=== PATIENT | female | born 1970 | race American Indian/Alaskan Native ===

== ENCOUNTER 2017-02-22 20:27 | Emergency (ER) | payer OTHER ==
[2017-02-22 21:15] LABS: Basophils % (Auto) 0.4 % (0.0-1.8); Eosinophils % (Auto) 0.6 % (0.0-4.3); Hematocrit 41.8 % (30.3-42.9); Hemoglobin 13.6 gm/dl (10.1-14.3); Mean Corpuscular HGB Conc 33 % (30-34); Mean Corpuscular Hemoglobin 30 pg (28-32); Mean Corpuscular Volume 92 fl (79-97); Platelet Count 248 K/mm3 (140-440); Red Blood Count 4.56 M/mm3 (3.65-5.03); Red Cell Distribution Width 13.1 % (13.2-15.2); White Blood Count 7.2 K/mm3 (4.5-11.0)
[2017-02-22 21:19] LABS: INR 0.95 (0.87-1.13)
[2017-02-22 21:20] LABS: Partial Thromboplastin Time 25.5 Sec. (24.2-36.6)
[2017-02-22 21:28] LABS: Anion Gap 22 mmol/L; BUN/Creatinine Ratio 17; Blood Urea Nitrogen 10 mg/dL (7-17); Calcium 8.5 mg/dL (8.4-10.2); Carbon Dioxide 20 mmol/L (22-30); Chloride 99.3 mmol/L (98-107); Glucose 136 mg/dL (65-100); Potassium 3.1 mmol/L (3.6-5.0); Sodium 138 mmol/L (137-145)
[2017-02-22] MEDS ORDERED: NORMODYNE PO ONE (21:30)
--- NOTE | 2017-02-22 21:31 | Cat Scan Report ---
FINAL REPORT PROCEDURE: CT HEAD/BRAIN WO CON TECHNIQUE: Computerized tomography of the head was performed without contrast material. HISTORY: neuro deficits \T\lt; 6hrs or sx present upon awakening COMPARISON: No prior studies are available for comparison. FINDINGS: Artifacts from patient's earrings obscure the C1-2 level. The visualized portions of the paranasal sinuses are clear. Mastoid air cells are clear. There is no calvarial fracture. There is no hydrocephalus. No acute intracranial hemorrhage or mass effect is seen. There is no evidence of acute CVA. IMPRESSION: No abnormalities are seen.
[2017-02-22] MEDS ORDERED: ECOTRIN PO ONE (21:47)
[2017-02-22] MEDS ORDERED: ZESTRIL PO ONE (21:48)
[2017-02-22] MEDS ORDERED: NACL 0.45% 1000 ML 1,000 ML IV SCH (22:00)
[2017-02-22] MEDS ORDERED: K-DUR PO ONE (22:20)
[2017-02-22] MEDS ORDERED: NORMODYNE ONE (22:33)
[2017-02-23] MEDS ORDERED: NORMODYNE PO ONE (01:09)
--- NOTE | 2017-02-23 01:09 | Emergency Department Report ---
ED Neuro Deficit HPI - General Chief Complaint: Neuro Symptoms/Deficit Stated Complaint: NUBMNESS IN R HAND/FAINT Time Seen by Provider: 02/22/17 21:31 Source: patient Mode of arrival: Ambulatory Limitations: No Limitations - History of Present Illness Initial Comments: 46-year-old female presents to complaints of weakness in her right upper arm and right lower extremity. This happened 30 minutes prior to arrival. She is a known hypertensive, noncompliant with medications for many months. Patient has no facial asymmetry, no drift of her extremities, She has good power and tone in all her extremities. No headaches no nausea, no vomiting, no blurred vision -: Sudden, minutes(s) (30 minutes prior to arrival) Location: right arm (weakness), right leg (weakness) History of same: No Place: home Severity: mild Quality: weak Improves With: rest Worsens With: none On Anticoagulants: No Context: sudden onset Associated Symptoms: denies: confusion, chest pain, cough, diaphoresis, fever/ chills, headaches, loss of appetite, malise, nausea/vomiting, vertigo, seizures , shortness of breath, syncope, weakness - Related Data Home Medications: Home Medications Medication Instructions Recorded Confirmed Last Taken Metoprolol 25 mg PO BID 02/22/17 02/22/17 Unknown Previous Rx's Medication Instructions Recorded Last Taken Type Aspirin [Aspirin EC] 81 mg PO DAILY #30 tablet. 02/23/17 Unknown Rx Labetalol [Normodyne TAB] 200 mg PO BID #60 tablet 02/23/17 Unknown Rx Allergies/Adverse Reactions: Allergies Allergy/AdvReac Type Severity Reaction Status Date / Time No Known Allergies Allergy Verified 02/22/17 21:50 ED Review of Systems ROS: Stated complaint: NUBMNESS IN R HAND/FAINT Other details as noted in HPI Comment: All other systems reviewed and negative Constitutional: see HPI, weakness. denies: chills, diaphoresis, fever, malaise Eyes: denies: eye pain, eye discharge, vision change ENT: denies: ear pain, throat pain, dental pain, hearing loss Respiratory: denies: cough, orthopnea, shortness of breath, SOB with exertion Cardiovascular: denies: chest pain, palpitations, dyspnea on exertion, orthopnea , edema, syncope Endocrine: no symptoms reported Gastrointestinal: denies: nausea, vomiting, diarrhea, constipation, hematemesis Genitourinary: denies: dysuria, frequency, hematuria, discharge Musculoskeletal: denies: back pain, joint swelling, arthralgia Skin: denies: lesions, change in color, change in hair/nails, pruritus Neurological: as per HPI, weakness, other (sudden onset of right-sided weakness) ED Past Medical Hx - Past Medical History Hx Hypertension: Yes - Surgical History Past Surgical History?: Yes Additional Surgical History: Hysterectomy - Social History Smoking Status: Current Every Day Smoker Substance Use Type: None - Medications Home Medications: Home Medications Medication Instructions Recorded Confirmed Last Taken Type Metoprolol 25 mg PO BID 02/22/17 02/22/17 Unknown History Aspirin [Aspirin EC] 81 mg PO DAILY #30 tablet. 02/23/17 Unknown Rx Labetalol [Normodyne TAB] 200 mg PO BID #60 tablet 02/23/17 Unknown Rx ED Neuro Physical Exam - General Limitations: No Limitations General appearance: alert, anxious, in distress (mild to moderate distress) Suspected Stroke: No - Head Head exam: Present: atraumatic, normocephalic, normal inspection - Eye Eye exam: Present: normal appearance, PERRL, EOMI. Absent: scleral icterus, conjunctival injection, nystagmus - ENT ENT exam: Present: normal exam, normal orophraynx, mucous membranes moist - Neck Neck exam: Present: normal inspection, full ROM. Absent: tenderness, meningismus, lymphadenopathy - Respiratory Respiratory exam: Present: normal lung sounds bilaterally. Absent: respiratory distress, wheezes, rales, rhonchi, chest wall tenderness, accessory muscle use, decreased breath sounds, prolonged expiratory - Cardiovascular Cardiovascular Exam: Present: regular rate, normal rhythm, normal heart sounds - GI/Abdominal GI/Abdominal exam: Present: soft, normal bowel sounds. Absent: distended, tenderness, guarding, rebound, hyperactive bowel sounds, hypoactive bowel sounds , organomegaly, mass, pulsatile mass - Rectal Rectal exam: Present: deferred - Extremities Exam Extremities exam: Present: normal inspection, full ROM, normal capillary refill. Absent: tenderness, pedal edema - Neurological Exam Neurological exam: Present: alert, oriented X3, CN II-XII intact, motor sensory deficit, reflexes normal, other (power in all extremities is grade 5/5.No drift of her extremites, no facial palsy) - NIHSS Assessment Interval: Baseline 1a. Level of Consciousness: alert 1b. LOC Questions: answers correctly 1c. LOC Commands: performs tasks correctly 2. Best Gaze: normal 3. Visual: no visual loss 4. Facial Palsy: normal symmetrical movement 5b. Motor Arm Right: no drift 5a. Motor Arm Left: no drift 6a. Motor Leg Left: no drift 6b. Motor Leg Right: no drift 7. Limb Ataxia: absent 8. Sensory: normal 9. Best Language: no aphasia 10. Dysarthria: normal 11. Extinction/Inattention: no abnormality Total Score: 0 Stroke Severity: No Stroke Symptoms ED Course Vital Signs 02/22/17 02/22/17 02/22/17 20:37 21:35 21:37 Temperature 98.2 F 98.5 F Pulse Rate 111 H Respiratory 16 Rate Blood Pressure 173/104 158/102 Blood Pressure 173/104 [Left] O2 Sat by Pulse 100 97 Oximetry 02/22/17 02/22/17 02/22/17 21:45 22:00 22:15 Temperature Pulse Rate 87 80 82 Respiratory 17 21 20 Rate Blood Pressure 151/96 151/96 Blood Pressure [Left] O2 Sat by Pulse 100 100 99 Oximetry 02/22/17 22:30 Temperature Pulse Rate Respiratory 24 Rate Blood Pressure 157/96 Blood Pressure [Left] O2 Sat by Pulse 99 Oximetry - Lab Data Result diagrams: 02/22/17 20:53 02/22/17 20:53 Lab Results 02/22/17 02/22/17 02/22/17 Range/Units 20:53 20:53 20:53 WBC 7.2 (4.5-11.0) K/mm3 RBC 4.56 (3.65-5.03) M/mm3 Hgb 13.6 (10.1-14.3) gm/dl Hct 41.8 (30.3-42.9) % MCV 92 (79-97) fl MCH 30 (28-32) pg MCHC 33 (30-34) % RDW 13.1 L (13.2-15.2) % Plt Count 248 (140-440) K/mm3 Lymph % (Auto) 26.4 (13.4-35.0) % [place] % (Auto) 6.5 (0.0-7.3) % Eos % (Auto) 0.6 (0.0-4.3) % Baso % (Auto) 0.4 (0.0-1.8) % Lymph # 1.9 (1.2-5.4) K/mm3 [place] # 0.5 (0.0-0.8) K/mm3 Eos # 0.0 (0.0-0.4) K/mm3 Baso # 0.0 (0.0-0.1) K/mm3 Seg Neutrophils % 66.1 (40.0-70.0) % Seg Neutrophils # 4.8 (1.8-7.7) K/mm3 PT 13.2 (12.2-14.9) Sec. INR 0.95 (0.87-1.13) APTT 25.5 (24.2-36.6) Sec. Thrombin Time (15.1-19.6) Sec. Sodium (137-145) mmol/L Potassium (3.6-5.0) mmol/L Chloride (98-107) mmol/L Carbon Dioxide (22-30) mmol/L Anion Gap mmol/L BUN (7-17) mg/dL Creatinine (0.7-1.2) mg/dL Estimated GFR ml/min BUN/Creatinine Ratio % Glucose (65-100) mg/dL Calcium (8.4-10.2) mg/dL Troponin T (0.00-0.029) ng/mL HCG, Qual Negative (Negative) 02/22/17 02/22/17 Range/Units 20:53 20:53 WBC (4.5-11.0) K/mm3 RBC (3.65-5.03) M/mm3 Hgb (10.1-14.3) gm/dl Hct (30.3-42.9) % MCV (79-97) fl MCH (28-32) pg MCHC (30-34) % RDW (13.2-15.2) % Plt Count (140-440) K/mm3 Lymph % (Auto) (13.4-35.0) % [place] % (Auto) (0.0-7.3) % Eos % (Auto) (0.0-4.3) % Baso % (Auto) (0.0-1.8) % Lymph # (1.2-5.4) K/mm3 [place] # (0.0-0.8) K/mm3 Eos # (0.0-0.4) K/mm3 Baso # (0.0-0.1) K/mm3 Seg Neutrophils % (40.0-70.0) % Seg Neutrophils # (1.8-7.7) K/mm3 PT (12.2-14.9) Sec. INR (0.87-1.13) APTT (24.2-36.6) Sec. Thrombin Time 16.3 (15.1-19.6) Sec. Sodium 138 (137-145) mmol/L Potassium 3.1 L (3.6-5.0) mmol/L Chloride 99.3 (98-107) mmol/L Carbon Dioxide 20 L (22-30) mmol/L Anion Gap 22 mmol/L BUN 10 (7-17) mg/dL Creatinine 0.6 L (0.7-1.2) mg/dL Estimated GFR > 60 ml/min BUN/Creatinine Ratio 17 % Glucose 136 H (65-100) mg/dL Calcium 8.5 (8.4-10.2) mg/dL Troponin T < 0.010 (0.00-0.029) ng/mL HCG, Qual (Negative) 02/23/17 01:19 Normal sinus rhythm rate of 95 beats per minutes, normal axis, no ST elevations , normal intervals. - Radiology Data Radiology results: report reviewed, image reviewed Critical Care Time: No Critical care attestation.: If time is entered above; I have spent that time in minutes in the direct care of this critically ill patient, excluding procedure time. ED Disposition Clinical Impression: Transient ischemic attack (TIA), Uncontrolled hypertension Disposition: TO HOME OR SELFCARE Is pt being admited?: No Does the pt Need Aspirin: Yes Condition: Stable Instructions: Hypertension (ED), Transient Ischemic Attack (ED) Additional Instructions: Follow up with any PCP in your district for continued monitoring of your blood pressure, titration of blood pressure pressure medication and return back to the ER if your problems gets worse Prescriptions: Aspirin [Aspirin EC] 81 mg PO DAILY #30 tablet. Labetalol [Normodyne TAB] 200 mg PO BID #60 tablet Referrals: PRIMARY MD NEYMAR [Primary Care Provider] - 3-5 Days DIXIE MYERS MD [Staff Physician] - 3-5 Days (Cor his office for an appointment) Time of Disposition: 01:26
[2017-02-23] MEDS ORDERED: BABY ASPIRIN PO ONE (01:30)
[2017-02-23 01:50] VITALS: BP 151/97
== END 2017-02-23 01:47 | disposition home or self-care (01) ==
LOC: ED 20:27
DX: G45.9 Transient cerebral ischemic attack, unspecified (principal); I10 Essential (primary) hypertension; F17.210 Nicotine dependence, cigarettes, uncomplicated
CPT/HCPCS: 36415; 70450; 80048; 82962; 84484; 84703; 85025; 85610; 85670; 85730; 93005; 93010; 96360; 99285

== ENCOUNTER 2017-06-24 18:11 | Emergency (ER) | payer OTHER ==
[2017-06-24 19:30] VITALS: BP 159/90
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
== END 2017-06-25 14:00 | disposition left against medical advice (07) ==
LOC: ED 18:11
DX: M25.569 Pain in unspecified knee (principal); M79.89 Other specified soft tissue disorders; Z53.21 Procedure and treatment not carried out due to patient leaving prior to being seen by health care provider

== ENCOUNTER 2017-06-25 20:40 | Emergency (ER) | payer OTHER ==
[2017-06-25 21:58] VITALS: BP 152/103
== END 2017-06-26 03:00 | disposition left against medical advice (07) ==
LOC: ED 20:40
DX: M25.569 Pain in unspecified knee (principal); Z53.21 Procedure and treatment not carried out due to patient leaving prior to being seen by health care provider

== ENCOUNTER 2018-04-30 20:56 | Emergency (ER) | payer BC ==
[2018-04-30] MEDS ORDERED: CATAPRES ONE ×2 (21:49→23:39)
[2018-04-30] MEDS ORDERED: CATAPRES PO ONE (21:51)
[2018-04-30] MEDS ORDERED: CATAPRES PO STA (23:25)
--- NOTE | 2018-04-30 23:25 | Emergency Department Report ---
ED General Adult HPI - General Chief complaint: High BP Stated complaint: HIGH BLOOD PRESSUE Time Seen by Provider: 04/30/18 23:12 Source: patient Mode of arrival: Ambulatory Limitations: No Limitations - History of Present Illness Initial comments: 47-year-old Israeli female with history of hypertension presents complaining of elevated blood pressure. She is currently on metoprolol and is in the process of having her medications adjusted by her primary care provider if she can no longer take Norvasc. States she blood pressure has been has been elevated in the 160 region 100s, but today she felt a little lightheaded and headache nose of blood pressures in the 190s over the 110s. Skin to the emergency department. She reports no loss of speech, no loss of consciousness, no chest pain, shortness breath, palpitations, tinnitus, no numbness or tingling. Reports no unilateral weakness. No loss of vision. - Related Data Home Medications Medication Instructions Recorded Confirmed Last Taken Metoprolol 25 mg PO BID 02/22/17 02/22/17 Unknown Previous Rx's Medication Instructions Recorded Last Taken Type Aspirin [Aspirin EC] 81 mg PO DAILY #30 tablet. 02/23/17 Unknown Rx Labetalol [Normodyne TAB] 200 mg PO BID #60 tablet 02/23/17 Unknown Rx Allergies Allergy/AdvReac Type Severity Reaction Status Date / Time hydrochlorothiazide Allergy Swelling Verified 06/25/17 22:31 ED Review of Systems ROS: Stated complaint: HIGH BLOOD PRESSUE Other details as noted in HPI ED Past Medical Hx - Past Medical History Hx Hypertension: Yes Additional medical history: Overweight - Surgical History Additional Surgical History: Hysterectomy. Eye, 1989 - Social History Smoking Status: Never Smoker Substance Use Type: Alcohol - Medications Home Medications: Home Medications Medication Instructions Recorded Confirmed Last Taken Type Metoprolol 25 mg PO BID 02/22/17 02/22/17 Unknown History Aspirin [Aspirin EC] 81 mg PO DAILY #30 tablet. 02/23/17 Unknown Rx Labetalol [Normodyne TAB] 200 mg PO BID #60 tablet 02/23/17 Unknown Rx ED Physical Exam - General Limitations: No Limitations General appearance: alert, in no apparent distress - Head Head exam: Present: atraumatic, normocephalic - Eye Eye exam: Present: normal appearance, PERRL, EOMI, other (negative funduscopic examination.) - ENT ENT exam: Present: mucous membranes moist - Neck Neck exam: Present: normal inspection - Respiratory Respiratory exam: Present: normal lung sounds bilaterally. Absent: respiratory distress - Cardiovascular Cardiovascular Exam: Present: regular rate, normal rhythm. Absent: systolic murmur, diastolic murmur, rubs, gallop - GI/Abdominal GI/Abdominal exam: Present: soft, normal bowel sounds - Extremities Exam Extremities exam: Present: normal inspection - Back Exam Back exam: Present: normal inspection, full ROM. Absent: CVA tenderness (R), CVA tenderness (L) - Neurological Exam Neurological exam: Present: alert, oriented X3, CN II-XII intact, normal gait. Absent: abnormal gait, motor sensory deficit, reflexes normal - Psychiatric Psychiatric exam: Present: normal affect, normal mood. Absent: anxious, flat affect, manic, suicidal ideation - Skin Skin exam: Present: warm, dry, intact, normal color. Absent: rash, cyanosis, diaphoretic, erythema, urticaria ED Course Vital Signs 04/30/18 04/30/18 21:39 21:51 Temperature 98.5 F Pulse Rate 73 73 Respiratory 18 Rate Blood Pressure 194/108 194/108 O2 Sat by Pulse 100 Oximetry - Reevaluation(s) Reevaluation #1: 04/30/18 23:21 Reports an improvement in her symptomatology after the clonidine. Blood pressures improved to 170/100. He'll feel better. CT scan was offered as well as further evaluation. However, Ms. Vargas refused stating that she sees her primary care doctor Luciano morning. She thinks that time for further evaluation and medical management. She is alert and oriented 3 and of sound judgment. She does understand the risk including stroke, , chronic condition, worsening condition, pain Critical care attestation.: If time is entered above; I have spent that time in minutes in the direct care of this critically ill patient, excluding procedure time. ED Disposition Clinical Impression: Hypertension Disposition: DC-01 TO HOME OR SELFCARE Is pt being admited?: No Does the pt Need Aspirin: No Condition: Stable Instructions: Hypertension (ED) Additional Instructions: Return to the emergency departments to experience any dizziness, chest pain, weakness, speach changes, worsening condition, Referrals: [facility] [Provider Group] - 3-5 Days
[2018-05-01 00:35] VITALS: BP 153/100
== END 2018-04-30 23:43 | disposition home or self-care (01) ==
LOC: ED 20:56
DX: I10 Essential (primary) hypertension (principal); Z90.710 Acquired absence of both cervix and uterus

== ENCOUNTER 2018-05-13 01:55 | Inpatient (IN) | payer BC ==
--- NOTE | 2018-05-13 02:07 | Emergency Department Report ---
ED Neuro Deficit HPI - General Chief Complaint: Neuro Symptoms/Deficit Stated Complaint: WEAKNESS ON RIGHT SIDE DIZZINESS Time Seen by Provider: 05/13/18 02:06 Source: patient Mode of arrival: Wheelchair Limitations: No Limitations - History of Present Illness Initial Comments: Patient c/o sudden onset of right facial and right foot numbness which started at 1am tonight. Patient denies any trauma or injury. -: Sudden Location: right face, other (right foot) History of same: No Place: home Severity: mild Quality: numb, improving Improves With: none Worsens With: none On Anticoagulants: No Context: sudden onset Associated Symptoms: denies other symptoms Treatments Prior to Arrival: none - Related Data Home Medications: Home Medications Medication Instructions Recorded Confirmed Last Taken Metoprolol 25 mg PO BID 02/22/17 02/22/17 Unknown Previous Rx's Medication Instructions Recorded Last Taken Type Aspirin [Aspirin EC] 81 mg PO DAILY #30 tablet. 02/23/17 Unknown Rx Labetalol [Normodyne TAB] 200 mg PO BID #60 tablet 02/23/17 Unknown Rx Allergies/Adverse Reactions: Allergies Allergy/AdvReac Type Severity Reaction Status Date / Time hydrochlorothiazide Allergy Swelling Verified 06/25/17 22:31 ED Review of Systems ROS: Stated complaint: WEAKNESS ON RIGHT SIDE DIZZINESS Other details as noted in HPI Comment: All other systems reviewed and negative Constitutional: denies: chills, fever Eyes: denies: eye pain, eye discharge, vision change ENT: denies: ear pain, throat pain Respiratory: denies: cough, shortness of breath, wheezing Cardiovascular: denies: chest pain, palpitations Endocrine: no symptoms reported Gastrointestinal: denies: abdominal pain, nausea, diarrhea Genitourinary: denies: urgency, dysuria, discharge Musculoskeletal: denies: back pain, joint swelling, arthralgia Skin: denies: rash, lesions Neurological: numbness (right face and foot.). denies: headache, weakness, paresthesias Psychiatric: denies: anxiety, depression Hematological/Lymphatic: denies: easy bleeding, easy bruising ED Past Medical Hx - Past Medical History Hx Hypertension: Yes Additional medical history: Overweight - Surgical History Additional Surgical History: Hysterectomy. Eye, 1989 - Social History Smoking Status: Never Smoker Substance Use Type: Alcohol - Medications Home Medications: Home Medications Medication Instructions Recorded Confirmed Last Taken Type Metoprolol 25 mg PO BID 02/22/17 02/22/17 Unknown History Aspirin [Aspirin EC] 81 mg PO DAILY #30 tablet. 02/23/17 Unknown Rx Labetalol [Normodyne TAB] 200 mg PO BID #60 tablet 02/23/17 Unknown Rx ED Neuro Physical Exam - General Limitations: No Limitations General appearance: alert, in no apparent distress Suspected Stroke: Yes - Head Head exam: Present: atraumatic, normocephalic - Eye Eye exam: Present: normal appearance, PERRL, EOMI Pupils: Present: normal accommodation - ENT ENT exam: Present: normal exam, normal orophraynx, mucous membranes moist - Neck Neck exam: Present: normal inspection, full ROM. Absent: tenderness - Respiratory Respiratory exam: Present: normal lung sounds bilaterally. Absent: respiratory distress, wheezes, rales, rhonchi - Cardiovascular Cardiovascular Exam: Present: regular rate, normal rhythm, normal heart sounds. Absent: systolic murmur, diastolic murmur, rubs, gallop - GI/Abdominal GI/Abdominal exam: Present: soft, normal bowel sounds. Absent: distended, tenderness, guarding, rebound - Rectal Rectal exam: Present: deferred - Extremities Exam Extremities exam: Present: normal inspection, full ROM, normal capillary refill. Absent: tenderness - Back Exam Back exam: Present: normal inspection, full ROM. Absent: tenderness - Neurological Exam Neurological exam: Present: alert, oriented X3, CN II-XII intact - NIHSS Assessment Interval: Baseline 1a. Level of Consciousness: alert/keenly responsive 1b. LOC Questions: answers both correctly 1c. LOC Commands: performs tasks correctly 2. Best Gaze: normal 3. Visual: no visual loss 4. Facial Palsy: normal symmetrical movement 5b. Motor Arm Right: no drift 5a. Motor Arm Left: no drift 6a. Motor Leg Left: no drift 6b. Motor Leg Right: no drift 7. Limb Ataxia: absent 8. Sensory: mild/moderate sensory loss 9. Best Language: no aphasia 10. Dysarthria: normal 11. Extinction/Inattention: no abnormality Total Score: 1 Stroke Severity: Minor Stroke - Psychiatric Psychiatric exam: Present: normal affect, normal mood - Skin Skin exam: Present: warm, dry, intact, normal color. Absent: rash ED Course Vital Signs 05/13/18 05/13/18 05/13/18 02:00 02:28 02:30 Temperature 97.8 F Pulse Rate 106 H 91 H Respiratory 20 14 Rate Blood Pressure 172/100 172/98 172/98 Blood Pressure 153/79 [Right] O2 Sat by Pulse 98 100 Oximetry 05/13/18 05/13/18 05/13/18 02:46 03:00 03:15 Temperature Pulse Rate 86 83 70 Respiratory 18 20 17 Rate Blood Pressure 153/79 145/92 135/69 Blood Pressure [Right] O2 Sat by Pulse 99 98 98 Oximetry - Consultations Consultation #1: 05/13/18 03:43 I consulted the teleneurologist data quality consultant Dr Urrutia. He said patient does not meet criteria for TPA. He recommend admission for MRI tomorrow morning. Consultation #2: 05/13/18 03:45 Dr Cade to admit patient. - Lab Data Result diagrams: 05/13/18 02:15 05/13/18 02:21 Lab Results 05/13/18 05/13/18 05/13/18 Range/Units 02:00 02:15 02:15 WBC 5.7 (4.5-11.0) K/mm3 RBC 4.59 (3.65-5.03) M/mm3 Hgb 13.8 (10.1-14.3) gm/dl Hct 41.9 (30.3-42.9) % MCV 91 (79-97) fl MCH 30 (28-32) pg MCHC 33 (30-34) % RDW 13.1 L (13.2-15.2) % Plt Count 237 (140-440) K/mm3 Lymph % (Auto) 35.6 H (13.4-35.0) % [place] % (Auto) 7.3 (0.0-7.3) % Eos % (Auto) 1.4 (0.0-4.3) % Baso % (Auto) 0.4 (0.0-1.8) % Lymph # 2.0 (1.2-5.4) K/mm3 [place] # 0.4 (0.0-0.8) K/mm3 Eos # 0.1 (0.0-0.4) K/mm3 Baso # 0.0 (0.0-0.1) K/mm3 Seg Neutrophils % 55.3 (40.0-70.0) % Seg Neutrophils # 3.1 (1.8-7.7) K/mm3 PT 12.5 (12.2-14.9) Sec. INR 0.90 (0.87-1.13) APTT 24.1 L (24.2-36.6) Sec. Thrombin Time 16.3 (15.1-19.6) Sec. Sodium (137-145) mmol/L Potassium (3.6-5.0) mmol/L Chloride (98-107) mmol/L Carbon Dioxide (22-30) mmol/L Anion Gap mmol/L BUN (7-17) mg/dL Creatinine (0.7-1.2) mg/dL Estimated GFR ml/min BUN/Creatinine Ratio % Glucose (65-100) mg/dL POC Glucose 121 H (70-105) Calcium (8.4-10.2) mg/dL Total Bilirubin (0.1-1.2) mg/dL AST (5-40) units/L ALT (7-56) units/L Alkaline Phosphatase (35-129) units/L Total Creatine Kinase (30-135) units/L CK-MB (CK-2) (0.0-4.0) ng/mL CK-MB (CK-2) Rel Index (0-4) Troponin T (0.00-0.029) ng/mL Total Protein (6.3-8.2) g/dL Albumin (3.9-5) g/dL Albumin/Globulin Ratio % HCG, Qual (Negative) 05/13/18 05/13/18 05/13/18 Range/Units 02:21 02:21 02:21 WBC (4.5-11.0) K/mm3 RBC (3.65-5.03) M/mm3 Hgb (10.1-14.3) gm/dl Hct (30.3-42.9) % MCV (79-97) fl MCH (28-32) pg MCHC (30-34) % RDW (13.2-15.2) % Plt Count (140-440) K/mm3 Lymph % (Auto) (13.4-35.0) % [place] % (Auto) (0.0-7.3) % Eos % (Auto) (0.0-4.3) % Baso % (Auto) (0.0-1.8) % Lymph # (1.2-5.4) K/mm3 [place] # (0.0-0.8) K/mm3 Eos # (0.0-0.4) K/mm3 Baso # (0.0-0.1) K/mm3 Seg Neutrophils % (40.0-70.0) % Seg Neutrophils # (1.8-7.7) K/mm3 PT (12.2-14.9) Sec. INR (0.87-1.13) APTT (24.2-36.6) Sec. Thrombin Time (15.1-19.6) Sec. Sodium 136 L (137-145) mmol/L Potassium 3.3 L (3.6-5.0) mmol/L Chloride 98.9 (98-107) mmol/L Carbon Dioxide 26 (22-30) mmol/L Anion Gap 14 mmol/L BUN 8 (7-17) mg/dL Creatinine 0.5 L (0.7-1.2) mg/dL Estimated GFR > 60 ml/min BUN/Creatinine Ratio 16 % Glucose 138 H (65-100) mg/dL POC Glucose (70-105) Calcium 8.7 (8.4-10.2) mg/dL Total Bilirubin < 0.20 (0.1-1.2) mg/dL AST 12 (5-40) units/L ALT 12 (7-56) units/L Alkaline Phosphatase 57 (35-129) units/L Total Creatine Kinase 151 H (30-135) units/L CK-MB (CK-2) 1.5 (0.0-4.0) ng/mL CK-MB (CK-2) Rel Index 0.9 (0-4) Troponin T < 0.010 (0.00-0.029) ng/mL Total Protein 6.7 (6.3-8.2) g/dL Albumin 4.0 (3.9-5) g/dL Albumin/Globulin Ratio 1.5 % HCG, Qual Negative (Negative) - EKG Data -: EKG Interpreted by Co EKG shows normal: sinus rhythm Rate: normal (91) When compared to previous EKG there are: previous EKG unavailable Interpretation: nonspecific ST-T wave florentino 05/13/18 02:32 First degree AV block, No STEMI. - Radiology Data Radiology results: report reviewed, image reviewed CT head showed no acute findings. - Medical Decision Making Right facial and right foot Numbness. Hypertension. - Core Measures AMI Core Measures Followed: Yes Measure Exclusions: contraindicated (Patient Not a candidate per Dr Urrutia (Neurologist)) - Thrombolytic Inclusion/Exclusion Thrombolytic Contraindications: Rapidily Improving s/s Critical Care Time: Yes Critical care time in (mins) excluding proc time.: 48 Critical care attestation.: If time is entered above; I have spent that time in minutes in the direct care of this critically ill patient, excluding procedure time. ED Disposition Clinical Impression: Numbness Hypertension Qualifiers: Hypertension type: unspecified Qualified Code(s): I10 - Essential (primary) hypertension Disposition: OP ADMIT IP TO THIS HOSP Is pt being admited?: Yes Does the pt Need Aspirin: Yes Condition: Stable Instructions: Hypertension (ED) Referrals: PRIMARY CARE, [Primary Care Provider] - 3-5 Days Time of Disposition: 03:45
--- NOTE | 2018-05-13 02:22 | Cat Scan Report ---
FINAL REPORT EXAM: CT HEAD/BRAIN WO CON HISTORY: neuro deficits <6hrs or sx present upon awakening COMPARISON: None available. TECHNIQUE: Axial images obtained skull base through vertex. FINDINGS: No acute intracranial hemorrhage, midline shift or pathologic extra axial fluid collection. Ventricle s and cisterns are normal in size and configuration for the patient's age. Zamudio-white differentiation preserved. Calvarium grossly intact. Visualized ocular globes are grossly unremarkable. Visualized p mo-nasal sinuses and mastoid air cells are clear. IMPRESSION: No grossly acute intracranial abnormality. No evidence of acute transcortical infarct or intracranial hemorrhage by CT at this time. If clinical concern for acute intracranial process remains, MRI would be suggested for further evaluation. NATASHA OSR notified of results on May 13, 2018 at 0218 hours EST.
[2018-05-13 02:45] LABS: INR 0.9 (0.87-1.13)
[2018-05-13 02:46] LABS: Partial Thromboplastin Time 24.1 Sec. (24.2-36.6); Thrombin Time 16.3 Sec. (15.1-19.6)
[2018-05-13 02:54] LABS: Basophils % (Auto) 0.4 % (0.0-1.8); Eosinophils # (Auto) 0.1 K/mm3 (0.0-0.4); Eosinophils % (Auto) 1.4 % (0.0-4.3); Hematocrit 41.9 % (30.3-42.9); Hemoglobin 13.8 gm/dl (10.1-14.3); Lymphocytes % (Auto) 35.6 % (13.4-35.0); Mean Corpuscular HGB Conc 33 % (30-34); Mean Corpuscular Volume 91 fl (79-97); Monocytes # (Auto) 0.4 K/mm3 (0.0-0.8); Monocytes % (Auto) 7.3 % (0.0-7.3); Platelet Count 237 K/mm3 (140-440); Red Blood Count 4.59 M/mm3 (3.65-5.03); Red Cell Distribution Width 13.1 % (13.2-15.2)
[2018-05-13 02:59] LABS: Creatine Kinase MB 1.5 ng/mL (0.0-4.0)
[2018-05-13 03:01] LABS: Alanine Aminotransferase 12 units/L (7-56); BUN/Creatinine Ratio 16; Blood Urea Nitrogen 8 mg/dL (7-17); Calcium 8.7 mg/dL (8.4-10.2); Hemolysis Index 10
[2018-05-13] MEDS ORDERED: K-DUR PO ONE (03:27)
[2018-05-13] MEDS ORDERED: ASPIRIN PO ONE (03:48)
[2018-05-13 06:07] LABS: Bacteria,Urine 1+ /HPF (Negative); Bilirubin,Urine NEG (Negative); Blood,Urine MOD (Negative); Color,Urine Straw (Yellow); Protein,Urine <15 mg/dL mg/dL (Negative); Urobilinogen,Urine < 2.0 mg/dL (<2.0); WBC,Urine < 1.0 /HPF (0.0-6.0)
[2018-05-13 06:12] LABS: Amphetamine Screen,Urine PRESUMPTIVE NEGATIVE; Benzodiazepines Screen,Urine PRESUMPTIVE NEGATIVE; Cocaine Screen,Urine PRESUMPTIVE NEGATIVE; Methadone Screen,Urine PRESUMPTIVE NEGATIVE; Opiate Screen,Urine PRESUMPTIVE NEGATIVE
[2018-05-13 06:24] LABS: Cannabinoid Screen,Urine PRESUMPTIVE POSITIVE
[2018-05-13] MEDS ORDERED: ZOFRAN IV PRN (07:15)
[2018-05-13] MEDS ORDERED: SENOKOT PO PRN (07:15)
[2018-05-13] MEDS ORDERED: REGLAN PO PRN (07:15)
[2018-05-13] MEDS ORDERED: APRESOLINE IV PRN (07:15)
[2018-05-13] MEDS ORDERED: PHENERGAN PR PRN (07:15)
[2018-05-13] MEDS ORDERED: ALUM-MAG HYDROX-SIMETH 200-200-20MG/5ML PO PRN (07:15)
[2018-05-13] MEDS ORDERED: TYLENOL PO PRN (07:15)
[2018-05-13] MEDS ORDERED: MILK OF MAGNESIA PO PRN (07:15)
[2018-05-13] MEDS ORDERED: SODIUM CHLORIDE FLUSH SYRINGE 10 ML IV PRN (07:15)
--- NOTE | 2018-05-13 07:26 | History and Physical Report ---
History of Present Illness Date of examination: 05/13/18 Date of admission: 05/13/18 03:48 Chief complaint: Rt sided weakness since last night History of present illness: A pleasant 47-year-old female patient presented to the emergency room with sudden onset of right-sided upper and lower extremity numbness and weakness Patient's blood pressure was uncontrolled, patient was slightly confused upon presentation Denies any starting of speech or facial weakness, Patient was not a candidate for TPA No history suggestive of CVA or TIA in the past, CT head without contrast is negative for acute abnormality No loss of consciousness or history of seizures Past History Past Medical History: hypertension Past Surgical History: hysterectomy, Other (eye surgery) Social history: other (recreational drug use). denies: smoking, alcohol abuse Family history: hypertension Medications and Allergies Allergies Allergy/AdvReac Type Severity Reaction Status Date / Time hydrochlorothiazide Allergy Swelling Verified 06/25/17 22:31 Home Medications Medication Instructions Recorded Confirmed Last Taken Type Metoprolol 25 mg PO BID 02/22/17 05/13/18 05/13/18 History Aspirin [Aspirin EC] 81 mg PO DAILY #30 tablet. 02/23/17 05/13/18 05/13/18 Rx Labetalol [Normodyne TAB] 200 mg PO BID #60 tablet 02/23/17 05/13/18 05/12/18 Rx Review of Systems Constitutional: no weight loss, no weight gain, no fever, no chills Ears, nose, mouth and throat: no nasal congestion, no nasal discharge Cardiovascular: no chest pain, no orthopnea Respiratory: no cough, no hemoptysis, no shortness of breath Gastrointestinal: no abdominal pain, no nausea, no vomiting Genitourinary Female: no flank pain, no dysuria Musculoskeletal: no myalgias, no arthritis Integumentary: no rash, no pruritis Neurological: weakness, numbness, other (right-sided weakness and numbness) Psychiatric: no anxiety, no depression Endocrine: no cold intolerance, no heat intolerance Hematologic/Lymphatic: no easy bruising, no easy bleeding Allergic/Immunologic: no urticaria, no allergic rhinitis Exam - Constitutional Vitals: Temp Pulse Resp BP Pulse Ox 97.9 F 70 16 161/90 100 05/13/18 06:05 05/13/18 06:05 05/13/18 06:05 05/13/18 06:05 05/13/18 06:05 General appearance: Present: no acute distress, well-nourished, obese - EENT Eyes: Present: PERRL, EOM intact - Neck Neck: Present: supple, normal ROM - Respiratory Respiratory effort: normal Respiratory: bilateral: diminished, negative: rales, rhonchi, wheezing - Cardiovascular Rhythm: regular Heart Sounds: Present: S1 & S2 - Extremities Extremities: no ischemia, No edema - Abdominal General gastrointestinal: Present: soft, non-tender, non-distended, normal bowel sounds - Integumentary Integumentary: Present: clear, warm - Musculoskeletal Musculoskeletal: strength equal bilaterally - Psychiatric Psychiatric: appropriate mood/affect, cooperative - Neurologic Neurologic: moves all extremities, other (right-sided weakness) Results - Labs CBC & Chem 7: 05/13/18 02:15 05/13/18 02:21 Labs: Abnormal lab results 05/13/18 05/13/18 05/13/18 Range/Units 02:00 02:15 02:15 RDW 13.1 L (13.2-15.2) % Lymph % (Auto) 35.6 H (13.4-35.0) % APTT 24.1 L (24.2-36.6) Sec. Sodium (137-145) mmol/L Potassium (3.6-5.0) mmol/L Creatinine (0.7-1.2) mg/dL Glucose (65-100) mg/dL POC Glucose 121 H (70-105) Total Creatine Kinase (30-135) units/L 05/13/18 05/13/18 Range/Units 02:21 02:21 RDW (13.2-15.2) % Lymph % (Auto) (13.4-35.0) % APTT (24.2-36.6) Sec. Sodium 136 L (137-145) mmol/L Potassium 3.3 L (3.6-5.0) mmol/L Creatinine 0.5 L (0.7-1.2) mg/dL Glucose 138 H (65-100) mg/dL POC Glucose (70-105) Total Creatine Kinase 151 H (30-135) units/L Assessment and Plan --Acute CVA/TIA Neuro checks, aspirin and statin, Not a candidate for TPA Extensive neuro workup, MRI/MRA, carotid Doppler, echocardiogram, EEG Physical therapy occupational therapy and speech therapy Rehabilitation if needed, Neurology consult --Hypertensive urgency; present on admission Blood pressure is reasonably controlled and evaluated the patient Permissive hypertension per stroke protocol[maintain blood pressures between 170 and 180] First 24 hours --Hypokalemia; replace per protocol and monitor levels --Mild hyponatremia; replacement therapy with IV fluids --Recreational drug use/marijuana; counseling advised to quit recreational drugs --DVT prophylaxis; Lovenox --DC planning case management Closely monitor the patient and adjust the management as needed Follow neurology evaluation and recommendations Follow neuro workup, just the management as needed Plan of care reviewed with the patient
[2018-05-13 08:27] LABS: INR 0.97 (0.87-1.13)
[2018-05-13 08:31] LABS: Creatine Kinase MB 1.5 ng/mL (0.0-4.0)
[2018-05-13] MEDS ORDERED: DULCOLAX PR PRN (10:00)
[2018-05-13] MEDS: PEPCID IV SCH ×2 (10:43→22:24)
--- NOTE | 2018-05-13 20:33 | Consultation ---
History of Present Illness Consult date: 05/13/18 Requesting physician: PRINCESS PATEL Reason for Consult: TIA History of present illness: 47 yr old rt. handed female presented to ED this a.m. withsymptoms of numbness in rt. foot and face. She states that she awakened from sleep because of numbness in her rt. foot. She checked her blood pressure and noted that it was high. She took an extra med for it as directed by her PCP. She then noted numbness also in her rt. cheek. At that point she came ti the ED. She has never had these symptoms before and was not on daily aspirin. She notes resolution of the numbness in her face, and improvement in the numbness and heaviness of her rt. foot. She admitted headache at the time of these symptoms. She denies changes in vision, palpitations, nausea, vomiting, dizziness, chest pain, or diplopia. CT scan is without abnormality. Past History Past Medical History: hypertension Past Surgical History: hysterectomy, Other (eye surgery) Social history: other (recreational drug use). denies: smoking, alcohol abuse Family history: hypertension Medications and Allergies Allergies Allergy/AdvReac Type Severity Reaction Status Date / Time hydrochlorothiazide Allergy Swelling Verified 06/25/17 22:31 Home Medications Medication Instructions Recorded Confirmed Last Taken Type Metoprolol 25 mg PO BID 02/22/17 05/13/18 05/13/18 History Aspirin [Aspirin EC] 81 mg PO DAILY #30 tablet. 02/23/17 05/13/18 05/13/18 Rx Labetalol [Normodyne TAB] 200 mg PO BID #60 tablet 02/23/17 05/13/18 05/12/18 Rx Active Meds: Active Medications Acetaminophen (Tylenol) 650 mg PO Q4H PRN PRN Reason: Pain, Mild (1-3) Al Hydrox/Mg Hydrox/Simethicone (Alum-Mag Hydrox-Simeth [id number]/5ml) 30 ml PO Q4H PRN PRN Reason: Indigestion Aspirin (Aspirin) 325 mg PO QDAY ADELE Atorvastatin Calcium (Lipitor) 40 mg PO QHS ADELE Bisacodyl (Dulcolax) 10 mg WA QDAY PRN PRN Reason: Constipation Famotidine (Pepcid) 20 mg IV BID ON LICENSE OF [facility] Last Admin: 05/13/18 10:43 Dose: 20 mg Documented by: Hydralazine HCl (Apresoline) 10 mg IV Q6H PRN PRN Reason: Keep SBP between 160-185 mm Hg Magnesium Hydroxide (Milk Of Magnesia) 30 ml PO Q4H PRN PRN Reason: Constipation Metoclopramide HCl (Reglan) 10 mg PO Q6H PRN PRN Reason: Nausea And Vomiting Ondansetron HCl (Zofran) 4 mg IV Q8H PRN PRN Reason: Nausea And Vomiting Promethazine HCl (Phenergan) 25 mg WA Q6H PRN PRN Reason: Nausea And Vomiting Senna (Senokot) 8.6 mg PO Q12H PRN PRN Reason: Laxative Effect Sodium Chloride (Sodium Chloride Flush Syringe 10 Ml) 10 ml IV PRN PRN PRN Reason: LINE FLUSH Review of Systems All systems: negative (numbness in both hands) Physical Examination - Vital Signs Vital Signs: Vital Signs Temp Pulse Resp BP Pulse Ox 97.8 F 106 H 20 172/100 98 05/13/18 02:00 05/13/18 02:00 05/13/18 02:00 05/13/18 02:00 05/13/18 02:00 - Physical Exam Narrative exam: Neurological Exam - Speech is fluent, relates history well. 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 V-1 thru V-3 intact bilaterally. Motor - 5/5 bilateraslly except rt. foot dorsiflexors - 4+/5 Reflexes - trace throughout Sensory - intact to touch and pin except rt. foot - decreased Cerebellar - FTN, Dequan, FFMs are intact. Gait normal. - Assessment Assessment Interval: Baseline - Level of Consciousness 1a. Level of Consciousness: alert/keenly responsive - LOC Questions 1b. LOC Questions: answers both correctly - LOC Command 1c. LOC Commands: performs tasks correctly - Best Gaze 2. Best Gaze: normal - Visual 3. Visual: no visual loss - Facial Palsy 4. Facial Palsy: normal symmetrical movement - Motor Arm 5b. Motor Arm Right: no drift - Motor Leg 6a. Motor Leg Left: no drift - Limb Ataxia 7. Limb Ataxia: absent - Sensory 8. Sensory: mild/moderate sensory loss - Best Language 9. Best Language: no aphasia - Dysarthria 10. Dysarthria: normal - Extinction and Inattention 11. Extinction/Inattention: no abnormality Results - Laboratory Findings CBC and BMP: 05/13/18 02:15 05/13/18 02:21 Abnormal Lab Findings: Abnormal Labs 05/13/18 05/13/18 05/13/18 02:00 02:15 02:15 RDW 13.1 L Lymph % (Auto) 35.6 H APTT 24.1 L Sodium Potassium Creatinine Glucose POC Glucose 121 H Total Creatine Kinase 05/13/18 05/13/18 05/13/18 02:21 02:21 07:36 RDW Lymph % (Auto) APTT Sodium 136 L Potassium 3.3 L Creatinine 0.5 L Glucose 138 H POC Glucose Total Creatine Kinase 151 H 138 H Assessment and Plan 47 yr old female with hypertension, awakened with numbness in rt. foot and facial numbness. CT is neg. MRI results pending. She admits gradual improvement. Plan - continue ASA and atorvastatin. will check MRI in a.m. PT to see pt.
--- NOTE | 2018-05-13 21:26 | Magnetic Resonance Report ---
FINAL REPORT PROCEDURE: MR BRAIN WO CON TECHNIQUE: Magnetic resonance imaging of the brain was performed without contrast material. HISTORY: strokeINPATIENT COMPARISON: No prior studies are available for comparison. FINDINGS: Skull base and calvarium: Normal. Paranasal sinuses: The visualized paranasal sinuses are clear. Cerebellum: No evidence of hemorrhage, ischemia or mass. Brainstem: No evidence of hemorrhage, ischemia or mass. Cerebrum: Diffusion-weighted images failed to demonstrate any hyperintense signal abnormalities. Smal l focal areas of ill-defined signal abnormality are noted involving the right medial temporal lobe wh ich are predominantly hyperintense on T2 and hypointense on T1 and FLAIR images. There are no intra-a xial or extra-axial fluid collections.. Ventricles: Normal in size and morphology for the patient's age. Pituitary gland and sella: Normal. Globes and orbits: Normal. IMPRESSION: Small focal signal abnormalities involving medial right temporal lobe are of nonspecific nature and m ost likely represent old lacunar infarcts. A postcontrast study is recommended for further evaluation . An acute infarct is not identified. No evidence of intracranial hemorrhage.
--- NOTE | 2018-05-13 22:03 | Magnetic Resonance Report ---
FINAL REPORT PROCEDURE: MR MRA HEAD WO CON TECHNIQUE: Axial 3-D [id number] MR angiography of the [place] and brain was performed. The source images were reconstructed in various views using maximum intensity projection. HISTORY: strokeINPATIENT COMPARISON: No prior studies are available for comparison. FINDINGS: Vertebral arteries: Normal. Basilar artery: Normal. Internal carotid arteries: Normal. Anterior cerebral arteries: Normal. Middle cerebral arteries: Normal. Posterior cerebral arteries: Normal. IMPRESSION: Unremarkable study
[2018-05-14 05:00] LABS: Bilirubin,Urine NEG (Negative); Blood,Urine MOD (Negative); Color,Urine Yellow (Yellow); Mucus,Urine FEW /HPF; Protein,Urine <15 mg/dL mg/dL (Negative); RBC,Urine < 1.0 /HPF (0.0-6.0); Urobilinogen,Urine < 2.0 mg/dL (<2.0)
[2018-05-14 05:08] LABS: Amphetamine Screen,Urine PRESUMPTIVE NEGATIVE; Benzodiazepines Screen,Urine PRESUMPTIVE NEGATIVE; Cocaine Screen,Urine PRESUMPTIVE NEGATIVE; Methadone Screen,Urine PRESUMPTIVE NEGATIVE; Opiate Screen,Urine PRESUMPTIVE NEGATIVE
[2018-05-14 05:38] LABS: Cannabinoid Screen,Urine PRESUMPTIVE POSITIVE
[2018-05-14 06:37] LABS: Chol/HDL Ratio 3.09 %
--- NOTE | 2018-05-14 08:21 | Progress Note ---
Assessment and Plan Assessment and plan: --Acute CVA/TIA Neuro checks, aspirin and statin, Not a candidate for TPA Extensive neuro workup, MRI/MRA, carotid Doppler, echocardiogram, EEG Physical therapy occupational therapy and speech therapy Rehabilitation if needed, Neurology consult Workup; Echocardiogram ; EF 50-55%, negative bubble study MRI brain; no acute infarcts, old infarcts noted MRA brain; negative CT head without contrast; no acute intracranial abnormality Carotid Doppler; --Hypertensive urgency; present on admission Blood pressure is reasonably controlled and evaluated the patient Permissive hypertension per stroke protocol[maintain blood pressures between 170 and 180] First 24 hours --Hypokalemia; replace per protocol and monitor levels --Mild hyponatremia; replacement therapy with IV fluids --Recreational drug use/marijuana; counseling advised to quit recreational drugs --DVT prophylaxis; Lovenox History Interval history: Patient seen and examined medical records reviewed No new events reported by the nursing staff Vital signs noted Hospitalist Physical - Constitutional Vitals: Temp Pulse Resp BP Pulse Ox 97.9 F 69 20 152/81 98 05/14/18 07:46 05/14/18 07:46 05/14/18 07:46 05/14/18 07:46 05/14/18 07:46 General appearance: Present: no acute distress, well-nourished, obese - EENT Eyes: Present: PERRL - Neck Neck: Present: supple, normal ROM - Respiratory Respiratory effort: normal Respiratory: bilateral: diminished, negative: rales, rhonchi, wheezing - Cardiovascular Rhythm: regular Heart Sounds: Present: S1 & S2 - Extremities Extremities: no ischemia, pulses intact - Abdominal General gastrointestinal: soft, non-tender, non-distended, normal bowel sounds - Integumentary Integumentary: Present: clear, warm - Psychiatric Psychiatric: appropriate mood/affect, cooperative - Neurologic Neurologic: CNII-XII intact, moves all extremities Results - Labs CBC & Chem 7: 05/13/18 02:15 05/15/18 08:54 Labs: Laboratory Last Values WBC 5.7 K/mm3 (4.5-11.0) 05/13/18 02:15 RBC 4.59 M/mm3 (3.65-5.03) 05/13/18 02:15 Hgb 13.8 gm/dl (10.1-14.3) 05/13/18 02:15 Hct 41.9 % (30.3-42.9) 05/13/18 02:15 MCV 91 fl (79-97) 05/13/18 02:15 MCH 30 pg (28-32) 05/13/18 02:15 MCHC 33 % (30-34) 05/13/18 02:15 RDW 13.1 % (13.2-15.2) L 05/13/18 02:15 Plt Count 237 K/mm3 (140-440) 05/13/18 02:15 Lymph % (Auto) 35.6 % (13.4-35.0) H 05/13/18 02:15 [place] % (Auto) 7.3 % (0.0-7.3) 05/13/18 02:15 Eos % (Auto) 1.4 % (0.0-4.3) 05/13/18 02:15 Baso % (Auto) 0.4 % (0.0-1.8) 05/13/18 02:15 Lymph # 2.0 K/mm3 (1.2-5.4) 05/13/18 02:15 [place] # 0.4 K/mm3 (0.0-0.8) 05/13/18 02:15 Eos # 0.1 K/mm3 (0.0-0.4) 05/13/18 02:15 Baso # 0.0 K/mm3 (0.0-0.1) 05/13/18 02:15 Seg Neutrophils % 55.3 % (40.0-70.0) 05/13/18 02:15 Seg Neutrophils # 3.1 K/mm3 (1.8-7.7) 05/13/18 02:15 ESR 1 mm/Hr (0-20) 05/14/18 03:40 PT 13.3 Sec. (12.2-14.9) 05/13/18 07:40 INR 0.97 (0.87-1.13) 05/13/18 07:40 APTT 27.0 Sec. (24.2-36.6) 05/13/18 07:40 Thrombin Time 16.3 Sec. (15.1-19.6) 05/13/18 02:15 Sodium 136 mmol/L (137-145) L 05/13/18 02:21 Potassium 3.3 mmol/L (3.6-5.0) L 05/13/18 02:21 Chloride 98.9 mmol/L (98-107) 05/13/18 02:21 Carbon Dioxide 26 mmol/L (22-30) 05/13/18 02:21 Anion Gap 14 mmol/L 05/13/18 02:21 BUN 8 mg/dL (7-17) 05/13/18 02:21 Creatinine 0.5 mg/dL (0.7-1.2) L 05/13/18 02:21 Estimated GFR > 60 ml/min 05/13/18 02:21 BUN/Creatinine Ratio 16 % 05/13/18 02:21 Glucose 138 mg/dL (65-100) H 05/13/18 02:21 POC Glucose 121 (70-105) H 05/13/18 02:00 Hemoglobin A1c 6.2 % (4-6) H 05/14/18 03:40 Calcium 8.7 mg/dL (8.4-10.2) 05/13/18 02:21 Total Bilirubin < 0.20 mg/dL (0.1-1.2) 05/13/18 02:21 AST 12 units/L (5-40) 05/13/18 02:21 ALT 12 units/L (7-56) 05/13/18 02:21 Alkaline Phosphatase 57 units/L (35-129) 05/13/18 02:21 Total Creatine Kinase 138 units/L (30-135) H 05/13/18 07:36 CK-MB (CK-2) 1.5 ng/mL (0.0-4.0) 05/13/18 07:36 CK-MB (CK-2) Rel Index 1.0 (0-4) 05/13/18 07:36 Troponin T < 0.010 ng/mL (0.00-0.029) 05/13/18 07:36 Total Protein 6.7 g/dL (6.3-8.2) 05/13/18 02:21 Albumin 4.0 g/dL (3.9-5) 05/13/18 02:21 Albumin/Globulin Ratio 1.5 % 05/13/18 02:21 Triglycerides 90 mg/dL (2-149) 05/14/18 03:40 Cholesterol 192 mg/dL (50-199) 05/14/18 03:40 LDL Cholesterol Direct 129 mg/dL (50-130) 05/14/18 03:40 HDL Cholesterol 62 mg/dL (40-59) H 05/14/18 03:40 Cholesterol/HDL Ratio 3.09 % 05/14/18 03:40 HCG, Qual Negative (Negative) 05/13/18 02:21 Urine Color Yellow (Yellow) 05/14/18 03:57 Urine Turbidity Clear (Clear) 05/14/18 03:57 Urine pH 6.0 (5.0-7.0) 05/14/18 03:57 Ur Specific [place] 1.008 (1.003-1.030) 05/14/18 03:57 Urine Protein <15 mg/dl mg/dL (Negative) 05/14/18 03:57 Urine Glucose (UA) Neg mg/dL (Negative) 05/14/18 03:57 Urine Ketones Neg mg/dL (Negative) 05/14/18 03:57 Urine Blood Mod (Negative) 05/14/18 03:57 Urine Nitrite Neg (Negative) 05/14/18 03:57 Urine Bilirubin Neg (Negative) 05/14/18 03:57 Urine Urobilinogen < 2.0 mg/dL (<2.0) 05/14/18 03:57 Ur Leukocyte Esterase Neg (Negative) 05/14/18 03:57 Urine WBC (Auto) 1.0 /HPF (0.0-6.0) 05/14/18 03:57 Urine RBC (Auto) < 1.0 /HPF (0.0-6.0) 05/14/18 03:57 U Epithel Cells (Auto) 1.0 /HPF (0-13.0) 05/14/18 03:57 Urine Bacteria (Auto) 1+ /HPF (Negative) 05/13/18 05:54 Urine Mucus Few /HPF 05/14/18 03:57 Urine Opiates Screen Presumptive negative 05/14/18 03:57 Urine Methadone Screen Presumptive negative 05/14/18 03:57 Ur Barbiturates Screen Presumptive negative 05/14/18 03:57 Ur Phencyclidine Scrn Presumptive negative 05/14/18 03:57 Ur Amphetamines Screen Presumptive negative 05/14/18 03:57 U Benzodiazepines Scrn Presumptive negative 05/14/18 03:57 Urine Cocaine Screen Presumptive negative 05/14/18 03:57 U Marijuana (THC) Screen Presumptive positive 05/14/18 03:57 Drugs of Abuse Note Disclamer 05/14/18 03:57 Nutrition/Malnutrition Assess - Dietary Evaluation Nutrition/Malnutrition Findings: Nutrition Notes Start: 05/13/18 14:04 Freq: Status: Active Protocol: Document 05/13/18 14:04 RM (Rec: 05/13/18 14:09 RM [id number]) Nutrition Notes Need for Assessment generated from: MD Order Initial or Follow up Brief Note Current Diagnosis Hypertension Other Pertinent Diagnosis Numbness Current Diet Cardiac Labs/Tests Reviewed Pertinent Medications Reviewed Height 5 ft 7 in Weight 87.09 kg Usual Body Weight 86.36 kg [place] Body Weight (lbs) 135.0 BMI 30.0 Subjective/Other Information Consulted for DM diet education and nutrition recommendations. DM Dx not in record. Pt stated she does not have DM. Pt stated that her appetite is good and that she ate all of her meals before admission. Stated UBW was 190 lbs on Saturday. Burn Absent Trauma Absent Nutrition Intervention Revisit per MD consult or patient Sign Off request:
[2018-05-14] MEDS: ASPIRIN PO SCH (10:20)
[2018-05-14] MEDS: PEPCID IV SCH (10:20)
[2018-05-14] MEDS: PEPCID PO SCH (22:44)
[2018-05-15] MEDS: APRESOLINE PO SCH ×2 (09:00→13:40)
--- NOTE | 2018-05-15 09:26 | Vascular Lab Report ---
FINAL REPORT EXAM: VL CAROTID DUPLEX BILAT HISTORY: stroke TECHNIQUE: Carotid ultrasound. Degree of carotid stenosis calculated by indirect methods via the pea k systolic velocities of the ICA and CCA and reference with the society of Radiologist and Ultrasound consensus conference radiology 2003. PRIORS: None currently available. FINDINGS: RIGHT CCA, ICA, and ECA (cm/s): 78, 117, and 121. Ratio = 1.49. LEFT CCA, ICA, and ECA (cm/s): 135, 120, and 1 1. Ratio = 0.89. There is plaque in both carotids. Both vertebral arteries demonstrate antegrade flow. Normal spectral rhythm is identified. Right thyroid nodule incidentally noted. IMPRESSION: No hemodynamically significant (>50%) stenosis noted based on the ratios, velocities, and color Do ppler images. Asymmetrical common carotid artery velocities may represent a central narrowing or imaging artifact. Further evaluation with a CTA of the neck may be helpful if clinically indicated.
[2018-05-15] MEDS ORDERED: ZESTRIL PO SCH ×2 (10:00)
[2018-05-15] MEDS: ASPIRIN PO SCH (11:44)
[2018-05-15] MEDS: PEPCID PO SCH (11:44)
--- NOTE | 2018-05-15 13:32 | Discharge Summary ---
Providers - Providers Date of Admission: 05/13/18 03:48 Date of discharge: 05/15/18 Attending physician: PRINCESS PATEL 05/13/18 05:32 Consult to Physician [CONS] Routine Comment: Consulting Provider: MARIANELA FITZGERALD Physician Instructions: Reason For Exam: Right Foot and Right Facial numbness. 05/13/18 07:16 Consult to Case Management [CONS] Routine Services Needed at Discharge: Silo Erector Notified:: senior case manager Consult to Dietitian/Nutrition [CONS] Routine Physician Instructions: Reason For Exam: Reason for Consult: Nutrition Recommendations Reason for Consult: Diet education Occupational Therapy Evaluate and Treat [CONS] Routine Comment: Reason For Exam: Neuro deficits Physical Therapy Evaluation and Treat [CONS] Routine Comment: Reason For Exam: Neuro deficits Primary care physician: [facility] REGISTERED NURSE Hospitalization Reason for admission: Right-sided weakness/resolved Condition: Stable Pertinent studies: Workup; Echocardiogram ; EF 50-55%, negative bubble study MRI brain; no acute infarcts, old infarcts noted MRA brain; negative CT head without contrast; no acute intracranial abnormality Carotid Doppler; no hemodynamically significant stenosis Some artifacts, patient will follow vascular, PMD for further evaluation Hospital course: 47-year-old female patient with significant past medical history of hypertension was admitted through emergency room with right-sided weakness of one day duration, Patient was initially evaluated admitted to the hospital, not a candidate for TPA Patient had extensive neuro workup which is negative as mentioned abov patient had uncontrolled hypertension since the time of admission, however significantly improved with medical management, Received physical therapy and occupational therapy and speech therapy Symptoms significantly improved, Today patient is comfortable no new complaints Vital signs stable, Physical examination is unremarkable Patient will Follow with primary care physician, advised to follow private neurologist for further evaluation as needed Discharge diagnosis; --Acute TIA;aspirin and statin, Not a candidate for TPA Physical therapy occupational therapy and speech therapy Neurology evaluated Workup; Echocardiogram ; EF 50-55%, negative bubble study MRI brain; no acute infarcts, old infarcts noted MRA brain; negative CT head without contrast; no acute intracranial abnormality Carotid Doppler; no hemodynamically significant stenosis Artifacts noted, patient advised to see primary care physician for further evaluation as needed --Hypertensive urgency; present on admission Blood pressure is reasonably controlled and evaluated the patient --Hypokalemia; corrected --Mild hyponatremia; improved --Recreational drug use/marijuana; counseling advised to quit recreational drugs Patient is hemodynamically stable for discharge Acute CVA ruled out. Disposition: DC-01 TO HOME OR SELFCARE Time spent for discharge: 32 min Core Measure Documentation - Palliative Care Palliative Care/ Comfort Measures: Not Applicable - Core Measures Any of the following diagnoses?: none Exam - Constitutional Vitals: Temp Pulse Resp BP Pulse Ox 98.7 F 81 18 186/109 95 05/15/18 08:13 05/15/18 08:13 05/15/18 08:13 05/15/18 08:13 05/15/18 08:13 General appearance: Present: no acute distress, well-nourished - EENT Eyes: Present: PERRL, EOM intact - Neck Neck: Present: supple, normal ROM - Respiratory Respiratory effort: normal Respiratory: bilateral: diminished, negative: rales, rhonchi, wheezing - Cardiovascular Rhythm: regular Heart Sounds: Present: S1 & S2 - Extremities Extremities: no ischemia, No edema - Abdominal General gastrointestinal: Present: soft, non-tender, non-distended, normal bowel sounds - Integumentary Integumentary: Present: clear, warm - Musculoskeletal Musculoskeletal: strength equal bilaterally - Psychiatric Psychiatric: appropriate mood/affect, cooperative - Neurologic Neurologic: CNII-XII intact, moves all extremities Plan Activity: advance as tolerated Diet: low salt Follow up with: PRIMARY CARE, [Primary Care Provider] - 3-5 Days CALLUM BARRY MD [Staff Physician] - 7 Days Forms: Work/School Release Form Prescriptions: AtorvaSTATin [Lipitor] 10 mg PO QHS #30 tab hydrALAZINE [Apresoline TAB] 25 mg PO Q8HR #90 tablet Lisinopril [Zestril TAB] 20 mg PO QDAY #30 tablet
[2018-05-15 16:14] VITALS: BP 157/89
--- NOTE | 2018-05-20 08:56 | Query-Altered Level of Consc. ---
Yuridia Lawson Tyson Date: 05/20/18 Machine Cloth Examiner/CDS: Yuriy/ Phone#: [phone] Exercise your independent professional judgment when responding to this query. Questions asked do not imply a particular answer is desired or expected. We greatly appreciate your clarification on this issue. Clinical Documentation States: .A pleasant 47-year-old female patient presented to the emergency room with sudden onset of right-sided upper and lower extremity numbness and weakness Patient's blood pressure was uncontrolled, patient was slightly confused upon presentation. Assessment and Plan Acute CVA/TIA Mild hyponatremia; replacement therapy with IV fluids Clinical Findings Show: 05/13/18 Sodium 136 MRI Brain 05/13/18-- Acute infarct not identified. Please provide an appropriate diagnosis clarifying the Etiology and Acuity of this clinical scenario: [x ] Metabolic Encephalopathy [ ] Toxic Encephalopathy [ ] Toxic - Metabolic Encephalopathy [ ] Septic Encephalopathy with Sepsis [ ] Septic Encephalopathy without Sepsis [ ] Acute Hepatic Encephalopathy [ ] Subacute Hepatic Encephalopathy [ ] Encephalopathy [ ] Other: [ ] Unable To Determine [ ]Comment/Explanation: Present on Admission: [ x] Yes (Y) [ ] Clinically undeterminable (W) [ ] No (N) Please also document response in your Progress Notes and/or Discharge Summary and indicate if the condition was present on admission. JOMARD
== END 2018-05-15 18:00 | disposition home or self-care (01) | DRG 71 ==
LOC: ED 01:55 → 4A 03:48
PROVIDERS: ADMIT Internal Medicine; ATTEND Internal Medicine
DX: G93.41 Metabolic encephalopathy (principal); G45.9 Transient cerebral ischemic attack, unspecified; E87.1 Hypo-osmolality and hyponatremia; I10 Essential (primary) hypertension; I16.0 Hypertensive urgency; E87.6 Hypokalemia; Z71.51 Drug abuse counseling and surveillance of drug abuser; F12.90 Cannabis use, unspecified, uncomplicated; Z90.710 Acquired absence of both cervix and uterus; Z82.49 Family history of ischemic heart disease and other diseases of the circulatory system; Z79.82 Long term (current) use of aspirin; Z79.899 Other long term (current) drug therapy; Z72.89 Other problems related to lifestyle
CPT/HCPCS: 36415; 70450; 70544; 70551; 80053; 80061; 80307; 81001; 82550; 82553; 82962; 83036; 84132; 84484; 84703; 85025; 85610; 85652; 85670; 85730; 93005; 93010; 93308; 93321; 93325; 93880; 96375; 99291; G0378; A9270-GY

== ENCOUNTER 2019-10-06 02:40 | Emergency (ER) | payer BC ==
[2019-10-06 03:48] LABS: Basophils % (Auto) 0.2 % (0.0-1.8); Eosinophils % (Auto) 0.3 % (0.0-4.3); Hematocrit 44.6 % (30.3-42.9); Hemoglobin 14.9 gm/dl (10.1-14.3); Lymphocytes # (Auto) 0.9 K/mm3 (1.2-5.4); Lymphocytes % (Auto) 11.6 % (13.4-35.0); Mean Corpuscular HGB Conc 33 % (30-34); Mean Corpuscular Volume 92 fl (79-97); Monocytes # (Auto) 0.4 K/mm3 (0.0-0.8); Monocytes % (Auto) 5.5 % (0.0-7.3); Platelet Count 230 K/mm3 (140-440); Red Blood Count 4.87 M/mm3 (3.65-5.03)
[2019-10-06 04:09] LABS: Alanine Aminotransferase 14 units/L (7-56); Albumin 4.2 g/dL (3.9-5); BUN/Creatinine Ratio 23; Blood Urea Nitrogen 14 mg/dL (7-17); Calcium 9.1 mg/dL (8.4-10.2); Hemolysis Index 10
[2019-10-06 04:27] VITALS: BP 167/89
== END 2019-10-06 04:39 | disposition home or self-care (01) ==
LOC: ED 02:40
DX: K52.9 Noninfective gastroenteritis and colitis, unspecified (principal); I10 Essential (primary) hypertension; F12.90 Cannabis use, unspecified, uncomplicated; Z90.710 Acquired absence of both cervix and uterus; Z79.899 Other long term (current) drug therapy; Z79.82 Long term (current) use of aspirin; Z88.8 Allergy status to other drugs, medicaments and biological substances
CPT/HCPCS: 36415; 80053; 83690; 85025; 96374; 96375; 99284; J2270; J2405

== ENCOUNTER 2020-01-25 11:32 | Emergency (ER) | payer SELFPAY ==
[2020-01-25] MEDS ORDERED: MORPHINE 4 MG/1 ML INJ IV ONE (14:17)
[2020-01-25] MEDS ORDERED: ONDANSETRON 4 MG/2 ML INJ IV ONE (14:17)
[2020-01-25] MEDS ORDERED: SODIUM CHLORIDE 0.9% 1000 ML 1,000 ML IV ONE (14:17)
--- NOTE | 2020-01-25 14:21 | Emergency Department Report ---
ED Abdominal Pain HPI - General Chief Complaint: Abdominal Pain Stated Complaint: N/V/ABD PAIN Time Seen by Provider: 01/25/20 13:57 Source: patient Mode of arrival: Wheelchair Limitations: No Limitations - History of Present Illness Initial Comments: 49-year-old -[place] female presents to the emergency room for abrupt abdominal pain that started this morning. Patient reports she is nausea and vomiting but denies any fever chills. Patient states that the pain is worse with sitting and having a bowel movement. Patient reports that she has had a hysterectomy. She has a current history of hypertension. Patient denies any constipation or diarrhea. MD Complaint: abdominal pain -: This morning Location: epigastric, suprapubic Radiation: none Severity scale (0 -10): 10 Quality: cramping, stabbing, sharp Improves With: nothing Worsens With: bowel movement Associated Symptoms: nausea, vomiting. denies: diarrhea, fever, chills, constipation, dysuria - Related Data Previous Rx's Medication Instructions Recorded Last Taken Type Aspirin [Aspirin EC] 81 mg PO DAILY #30 tablet.dr 02/23/17 05/13/18 Rx AtorvaSTATin [Lipitor] 10 mg PO QHS #30 tab 05/15/18 Unknown Rx hydrALAZINE [Apresoline TAB] 25 mg PO Q8HR #90 tablet 05/15/18 Unknown Rx lisinopriL [Zestril TAB] 20 mg PO QDAY #30 tablet 05/15/18 Unknown Rx Loperamide [Imodium] 2 tab PO QID 2 Days #16 capsule 10/06/19 Unknown Rx Promethazine [Phenergan] 25 mg PO Q6HR PRN #10 tab 10/06/19 Unknown Rx Ondansetron [Zofran Odt] 4 mg PO Q8HR #12 tab.rapdis 01/25/20 Unknown Rx traMADoL [Ultram 50 MG tab] 50 mg PO Q6HR PRN #12 tablet 01/25/20 Unknown Rx Allergies Allergy/AdvReac Type Severity Reaction Status Date / Time hydrochlorothiazide Allergy Swelling Verified 06/25/17 22:31 ED Review of Systems ROS: Stated complaint: N/V/ABD PAIN Other details as noted in HPI Comment: All other systems reviewed and negative ED Past Medical Hx - Past Medical History Previous Medical History?: Yes Hx Hypertension: Yes Hx Congestive Heart Failure: No Hx Diabetes: No Hx Asthma: No Hx COPD: No Additional medical history: Overweight - Surgical History Past Surgical History?: Yes Additional Surgical History: Hysterectomy. Eye, 1989 - Social History Smoking Status: Never Smoker Substance Use Type: Marijuana - Medications Home Medications: Home Medications Medication Instructions Recorded Confirmed Last Taken Type Aspirin [Aspirin EC] 81 mg PO DAILY #30 tablet.dr 02/23/17 05/13/18 05/13/18 Rx AtorvaSTATin [Lipitor] 10 mg PO QHS #30 tab 05/15/18 Unknown Rx hydrALAZINE [Apresoline TAB] 25 mg PO Q8HR #90 tablet 05/15/18 Unknown Rx lisinopriL [Zestril TAB] 20 mg PO QDAY #30 tablet 05/15/18 Unknown Rx Loperamide [Imodium] 2 tab PO QID 2 Days #16 capsule 10/06/19 Unknown Rx Promethazine [Phenergan] 25 mg PO Q6HR PRN #10 tab 10/06/19 Unknown Rx Ondansetron [Zofran Odt] 4 mg PO Q8HR #12 tab.rapdis 01/25/20 Unknown Rx traMADoL [Ultram 50 MG tab] 50 mg PO Q6HR PRN #12 tablet 01/25/20 Unknown Rx ED Physical Exam - General Limitations: No Limitations General appearance: alert, in distress - Head Head exam: Present: atraumatic, normocephalic - Eye Eye exam: Present: normal appearance - ENT ENT exam: Present: mucous membranes moist - Neck Neck exam: Present: normal inspection - Respiratory Respiratory exam: Present: normal lung sounds bilaterally. Absent: respiratory distress - Cardiovascular Cardiovascular Exam: Present: tachycardia - GI/Abdominal GI/Abdominal exam: Present: soft, tenderness, guarding. Absent: distended - Back Exam Back exam: Present: normal inspection - Neurological Exam Neurological exam: Present: alert, oriented X3 - Psychiatric Psychiatric exam: Present: normal affect, normal mood - Skin Skin exam: Present: warm, dry, intact, normal color. Absent: rash ED Course Vital Signs 01/25/20 01/25/20 01/25/20 12:05 15:09 15:13 Temperature 97.4 F L Pulse Rate 92 H Respiratory 20 20 22 Rate Blood Pressure 170/102 O2 Sat by Pulse 100 Oximetry 01/25/20 01/25/20 01/25/20 15:18 16:06 16:27 Temperature 96.9 F L Pulse Rate Respiratory 26 H Rate Blood Pressure 193/116 O2 Sat by Pulse 100 Oximetry 01/25/20 01/25/20 01/25/20 17:01 17:15 17:45 Temperature Pulse Rate 68 85 88 Respiratory 14 22 10 L Rate Blood Pressure 179/89 193/116 164/99 O2 Sat by Pulse 100 100 100 Oximetry 01/25/20 18:15 Temperature Pulse Rate 81 Respiratory 22 Rate Blood Pressure 179/89 O2 Sat by Pulse 99 Oximetry - Reevaluation(s) Reevaluation #1: 01/25/20 18:38 Patient reports she feels much better after having fluids antinausea medication pain medication. ED Medical Decision Making - Lab Data Result diagrams: 01/25/20 14:25 01/25/20 14:25 - Radiology Data Radiology results: report reviewed Ordering Physician: MARYSE COTTER Date of Service: 01/25/20 Procedure(s): CT abdomen pelvis w con Accession Number(s): [id number] cc: MARYSE COTTER CT ABDOMEN AND PELVIS WITH CONTRAST INDICATION / CLINICAL INFORMATION: MAIN. Abdominal pain, nausea and vomiting TECHNIQUE: Axial CT images were obtained through the abdomen and pelvis after IV contrast. All CT scans at this location are performed using CT dose reduction for ALARA by means of automated exposure control. COMPARISON: None available. FINDINGS: LOWER CHEST: No significant abnormality. LIVER: No significant abnormality. GALLBLADDER: No significant abnormality. BILE DUCTS: There is prominence of the common bile duct measuring 7 mm in cross sectional diameter. PANCREAS: The pancreatic parenchyma is unremarkable. The pancreatic duct is dilated proximally measuring 6 mm at its greatest diameter. SPLEEN: No significant abnormality. ADRENALS: 2.6 cm left adrenal nodule measures 58 Hounsfield units on post contrast imaging and is incompletely evaluated on this exam. The right adrenal is unremarkable RIGHT KIDNEY / URETER: No significant abnormality. LEFT KIDNEY / URETER: No significant abnormality. STOMACH / SMALL BOWEL: No significant abnormality. COLON: No significant abnormality. APPENDIX: No significant abnormality. PERITONEUM: No free fluid. No free air. No fluid collection. LYMPH NODES: No significant adenopathy. AORTA / ARTERIES: No significant abnormality. IVC / VEINS: No significant abnormality. URINARY BLADDER: No significant abnormality. REPRODUCTIVE ORGANS: Prior hysterectomy. ADDITIONAL FINDINGS: Diastasis recti. SKELETAL SYSTEM: Prior hysterectomy. IMPRESSION: 1. Nonspecific dilatation of the common bile duct and proximal pancreatic duct without evidence of calcified gallstones or surrounding inflammatory changes. Variant pancreatic ductal anatomy is a consideration and further workup for noncalcified gallstones could be helpful. 2. Poorly characterized 2.6 cm left adrenal nodule. Nonemergent MR adrenal protocol with MRCP could help to further evaluate both of these findings. Signer Name: Slim Gallagher MD - Medical Decision Making 49-year-old -[place] female presents to the emergency room for abrupt abdominal pain that started this morning. Patient reports she is nausea and vomiting but denies any fever chills. Patient states that the pain is worse with sitting and having a bowel movement. Patient reports that she has had a hysterectomy. She has a current history of hypertension. Patient denies any constipation or diarrhea. CBC CMP lipase urinalysis, IV normal saline Zofran and morphine. CT scan shows some gallstones stones that could be calcified nothing acute shows that she has an adrenal cyst they recommend for nonemergent MRCP. Patient will be referred to endocrinology primary care and general surgery. Patient be discharged home on tramadol, Zofran. Critical care attestation.: If time is entered above; I have spent that time in minutes in the direct care of this critically ill patient, excluding procedure time. ED Disposition Clinical Impression: Abdominal pain, Nausea and vomiting, Hypertension Disposition: DC-01 TO HOME OR SELFCARE Is pt being admited?: No Does the pt Need Aspirin: No Condition: Stable Instructions: Abdominal Pain (ED), Hypertension (ED) Additional Instructions: CT shows a to have some gallbladder stones that are calcified and no adrenal gla nd cyst so I would like for you to follow-up with endocrine and general surgery. Also have given you a prescription for Zofran and tramadol for pain. Please increase your fluid intake advance her diet as tolerated. Prescriptions: traMADoL [Ultram 50 MG tab] 50 mg PO Q6HR PRN #12 tablet PRN Reason: Pain Ondansetron [Zofran Odt] 4 mg PO Q8HR #12 tab.rapdis Referrals: VIMAL MILLER MD [Staff Physician] - 3-5 Days MIKE HOLDER MD [Staff Physician] - 3-5 Days Forms: Work/School Release Form(ED)
[2020-01-25 14:42] LABS: Basophils % (Auto) 0.3 % (0.0-1.8); Hematocrit 45.3 % (30.3-42.9); Hemoglobin 14.9 gm/dl (10.1-14.3); Lymphocytes # (Auto) 0.9 K/mm3 (1.2-5.4); Lymphocytes % (Auto) 6.4 % (13.4-35.0); Mean Corpuscular HGB Conc 33 % (30-34); Mean Corpuscular Volume 93 fl (79-97); Monocytes # (Auto) 0.6 K/mm3 (0.0-0.8); Monocytes % (Auto) 4.1 % (0.0-7.3); Platelet Count 288 K/mm3 (140-440); Red Cell Distribution Width 14.1 % (13.2-15.2)
[2020-01-25] MEDS ORDERED: ONDANSETRON 4 MG ODT TAB ONE (14:53)
[2020-01-25 15:06] LABS: Alanine Aminotransferase 14 units/L (7-56); Albumin 4.6 g/dL (3.9-5); Blood Urea Nitrogen 16 mg/dL (7-17); Calcium 9.8 mg/dL (8.4-10.2); Hemolysis Index 34
[2020-01-25 15:07] LABS: BUN/Creatinine Ratio 27
[2020-01-25] MEDS ORDERED: ONDANSETRON 4 MG ODT TAB PO ONE (15:38)
[2020-01-25 15:46] LABS: Bilirubin,Urine NEG (Negative); Blood,Urine SM (Negative); Color,Urine Yellow (Yellow); Mucus,Urine FEW /HPF; Urobilinogen,Urine < 2.0 mg/dL (<2.0)
[2020-01-25 17:15] VITALS: BP 179/89
--- NOTE | 2020-01-25 17:24 | Cat Scan Report ---
CT ABDOMEN AND PELVIS WITH CONTRAST INDICATION / CLINICAL INFORMATION: MAIN. Abdominal pain, nausea and vomiting TECHNIQUE: Axial CT images were obtained through the abdomen and pelvis after IV contrast. All CT scans at this location are performed using CT dose reduction for ALARA by means of automated exposure control. COMPARISON: None available. FINDINGS: LOWER CHEST: No significant abnormality. LIVER: No significant abnormality. GALLBLADDER: No significant abnormality. BILE DUCTS: There is prominence of the common bile duct measuring 7 mm in cross sectional diameter. PANCREAS: The pancreatic parenchyma is unremarkable. The pancreatic duct is dilated proximally measur ing 6 mm at its greatest diameter. SPLEEN: No significant abnormality. ADRENALS: 2.6 cm left adrenal nodule measures 58 Hounsfield units on post contrast imaging and is inc ompletely evaluated on this exam. The right adrenal is unremarkable RIGHT KIDNEY / URETER: No significant abnormality. LEFT KIDNEY / URETER: No significant abnormality. STOMACH / SMALL BOWEL: No significant abnormality. COLON: No significant abnormality. APPENDIX: No significant abnormality. PERITONEUM: No free fluid. No free air. No fluid collection. LYMPH NODES: No significant adenopathy. AORTA / ARTERIES: No significant abnormality. IVC / VEINS: No significant abnormality. URINARY BLADDER: No significant abnormality. REPRODUCTIVE ORGANS: Prior hysterectomy. ADDITIONAL FINDINGS: Diastasis recti. SKELETAL SYSTEM: Prior hysterectomy. IMPRESSION: 1. Nonspecific dilatation of the common bile duct and proximal pancreatic duct without evidence of ca lcified gallstones or surrounding inflammatory changes. Variant pancreatic ductal anatomy is a consid eration and further workup for noncalcified gallstones could be helpful. 2. Poorly characterized 2.6 cm left adrenal nodule. Nonemergent MR adrenal protocol with MRCP could h elp to further evaluate both of these findings. Signer Name: Slim Gallagher MD Signed: 01/25/2020 5:19 PM Workstation Name: [id number]
== END 2020-01-25 19:03 | disposition home or self-care (01) ==
LOC: ED 11:32
DX: R11.2 Nausea with vomiting, unspecified (principal); R10.9 Unspecified abdominal pain; I10 Essential (primary) hypertension; F12.90 Cannabis use, unspecified, uncomplicated; Z79.899 Other long term (current) drug therapy; Z98.890 Other specified postprocedural states; Z90.710 Acquired absence of both cervix and uterus; Z88.8 Allergy status to other drugs, medicaments and biological substances
CPT/HCPCS: 36415; 74177; 80053; 81001; 83690; 85025; 96361; 96374; 99284; J2270; J7030; Q9967; J2405; Q0162

== ENCOUNTER 2020-02-15 15:06 | Emergency (ER) | payer SELFPAY ==
[2020-02-15 15:14] VITALS: BP 121/76
--- NOTE | 2020-02-15 15:16 | Event Note ---
ED Screening Note Date of service: 02/15/20 Time: 15:15 ED Screening Note: right foot and 1st toe pain after crush injury 1 week ago +ttp of right great toe and distal MTP joints This initial assessment/diagnostic orders/clinical plan/treatment(s) is/are subject to change based on patients health status, clinical progression and re- assessment by fellow clinical providers in the ED. Further treatment and workup at subsequent clinical providers discretion. Patient/guardian urged not to elope from the ED as their condition may be serious if not clinically assessed and managed. Initial orders include: xr
--- NOTE | 2020-02-15 15:55 | XRay Report ---
RIGHT FOOT 3 VIEW(S) INDICATION / CLINICAL INFORMATION: 1st toe and distal foot pain after crush injury COMPARISON: None available. FINDINGS: BONES / JOINT(S): Oblique fracture of the proximal phalanx of the right great toe extending to the me dial margin of the interphalangeal joint. No definite extension to the MTP joint. No other fracture. SOFT TISSUES: Soft tissue swelling of the great toe. ADDITIONAL FINDINGS: None. Signer Name: Brien Marrufo MD Signed: 02/15/2020 3:50 PM Workstation Name: [id number]
--- NOTE | 2020-02-15 17:54 | Emergency Department Report ---
ED Lower Extremity HPI - General Chief Complaint: Extremity Injury, Lower Stated Complaint: RT FOOT PAINS Time Seen by Provider: 02/15/20 15:14 Source: patient Mode of arrival: Ambulatory Limitations: No Limitations - History of Present Illness Initial Comments: Patient is 49 years old female presented to the ER complaining of right great toe pain after a wine blender fell on her foot few days ago. Patient denies any other injuries. MD Complaint: foot injury -: days(s) Injury: Foot: Right Type of Injury: blunt Place: home - Related Data Previous Rx's Medication Instructions Recorded Last Taken Type Aspirin [Aspirin EC] 81 mg PO DAILY #30 tablet.dr 02/23/17 05/13/18 Rx AtorvaSTATin [Lipitor] 10 mg PO QHS #30 tab 05/15/18 Unknown Rx hydrALAZINE [Apresoline TAB] 25 mg PO Q8HR #90 tablet 05/15/18 Unknown Rx lisinopriL [Zestril TAB] 20 mg PO QDAY #30 tablet 05/15/18 Unknown Rx Loperamide [Imodium] 2 tab PO QID 2 Days #16 capsule 10/06/19 Unknown Rx Promethazine [Phenergan] 25 mg PO Q6HR PRN #10 tab 10/06/19 Unknown Rx Ondansetron [Zofran Odt] 4 mg PO Q8HR #12 tab.rapdis 01/25/20 Unknown Rx traMADoL [Ultram 50 MG tab] 50 mg PO Q6HR PRN #12 tablet 01/25/20 Unknown Rx Allergies Allergy/AdvReac Type Severity Reaction Status Date / Time hydrochlorothiazide Allergy Swelling Verified 06/25/17 22:31 ED Review of Systems ROS: Stated complaint: RT FOOT PAINS Other details as noted in HPI Comment: All other systems reviewed and negative Constitutional: denies: chills, fever Respiratory: denies: cough Cardiovascular: denies: chest pain, palpitations Gastrointestinal: denies: abdominal pain, nausea ED Past Medical Hx - Past Medical History Previous Medical History?: Yes Hx Hypertension: Yes Hx Congestive Heart Failure: No Hx Diabetes: No Hx Asthma: No Hx COPD: No Additional medical history: Overweight - Surgical History Past Surgical History?: Yes Additional Surgical History: Hysterectomy. Eye, 1989 - Social History Smoking Status: Never Smoker Substance Use Type: Marijuana - Medications Home Medications: Home Medications Medication Instructions Recorded Confirmed Last Taken Type Aspirin [Aspirin EC] 81 mg PO DAILY #30 tablet.dr 02/23/17 05/13/18 05/13/18 Rx AtorvaSTATin [Lipitor] 10 mg PO QHS #30 tab 05/15/18 Unknown Rx hydrALAZINE [Apresoline TAB] 25 mg PO Q8HR #90 tablet 05/15/18 Unknown Rx lisinopriL [Zestril TAB] 20 mg PO QDAY #30 tablet 05/15/18 Unknown Rx Loperamide [Imodium] 2 tab PO QID 2 Days #16 capsule 10/06/19 Unknown Rx Promethazine [Phenergan] 25 mg PO Q6HR PRN #10 tab 10/06/19 Unknown Rx Ondansetron [Zofran Odt] 4 mg PO Q8HR #12 tab.rapdis 01/25/20 Unknown Rx traMADoL [Ultram 50 MG tab] 50 mg PO Q6HR PRN #12 tablet 01/25/20 Unknown Rx ED Physical Exam - General Limitations: No Limitations General appearance: alert, in no apparent distress - Head Head exam: Present: atraumatic - ENT ENT exam: Present: normal exam - Respiratory Respiratory exam: Present: normal lung sounds bilaterally. Absent: chest wall tenderness - Cardiovascular Cardiovascular Exam: Present: regular rate, normal rhythm, normal heart sounds - Expanded Lower Extremity Exam Right Foot/Toe exam: Present: tenderness. Absent: full ROM, swelling, abrasion, laceration, ecchymosis, deformity, erythema, amputation, puncture wound, foreign body, calcaneal tenderness, tenderness at base of 5th metatarsal Neuro vascular tendon exam: Present: no vascular compromise - Back Exam Back exam: Present: normal inspection, full ROM. Absent: CVA tenderness (R), CVA tenderness (L) - Neurological Exam Neurological exam: Present: alert, oriented X3, CN II-XII intact, normal gait - Psychiatric Psychiatric exam: Present: normal mood - Skin Skin exam: Present: warm, intact, normal color ED Course Vital Signs 02/15/20 15:12 Temperature 98.2 F Pulse Rate 87 Respiratory 18 Rate Blood Pressure 121/76 O2 Sat by Pulse 96 Oximetry - Orthopedic Splinting/Casting Injury #1 Side: right Lower Extremity Injury Location: foot Lower Extremity Immobilizer: post-op shoe ED Lower Extremity MDM - Radiology Data Radiology results: report reviewed - Medical Decision Making X-ray showed a right great toe fracture. Postop shoe applied to the right foot. Patient advised to follow-up with Dr. Harrison in the next 2 to 3 days and to return to the ER if she develop any new symptoms. Critical care attestation.: If time is entered above; I have spent that time in minutes in the direct care of this critically ill patient, excluding procedure time. ED Disposition Clinical Impression: Toe fracture, right Disposition: DC-01 TO HOME OR SELFCARE Is pt being admited?: No Condition: Stable Instructions: Toe Fracture (ED) Referrals: GERTRUDIS HARRISON MD [Staff Physician] - 3-5 Days
== END 2020-02-15 18:10 | disposition home or self-care (01) ==
LOC: ED 15:06
DX: S92.491A Other fracture of right great toe, initial encounter for closed fracture (principal); I10 Essential (primary) hypertension; Z90.710 Acquired absence of both cervix and uterus; F12.10 Cannabis abuse, uncomplicated; X58.XXXA Exposure to other specified factors, initial encounter; Y93.89 Activity, other specified; Y92.89 Other specified places as the place of occurrence of the external cause; Y99.8 Other external cause status
CPT/HCPCS: 99283